=== PATIENT | female | born 1985 | race Two or more races ===

== ENCOUNTER → 2017-07-06 | Outpatient (CLI) | payer OTHER | LOC: CFH 16:05 | PROVIDERS: ATTEND Obstetrics & Gynecology | DX: Z36.9 Encounter for antenatal screening, unspecified (principal); Z3A.19 19 weeks gestation of pregnancy | CPT/HCPCS: 76805 ==

== ENCOUNTER 2017-07-07 10:00 | Emergency (ER) | payer OTHER ==
[~2017-07-07] VITALS: Ht 170.2 cm; Wt 62.0 kg
[2017-07-07 10:58] LABS: BASOPHILS # (AUTO) 0.02 x10^3/uL (0-0.1); BASOPHILS % (AUTO) 0 % (0-1); EOSINOPHILS # (AUTO) 0.05 x10^3/uL (0-0.4); EOSINOPHILS % (AUTO) 1 % (1-7); LYMPHOCYTES % (AUTO) 20 % (22-44); MD NO; MEAN CORPUSCULAR HEMOGLOBIN 28.7 pg (27.0-34.8); MEAN CORPUSCULAR HGB CONC 33.3 g/dL (32.4-35.8); MEAN CORPUSCULAR VOLUME 86.1 fL (80-100); MEAN PLATELET VOLUME 10.3 fL (7.4-10.4); MONOCYTES # (AUTO) 0.41 x10^3/uL (0.2-0.8); MONOCYTES % (AUTO) 5 % (2-9); NEUTROPHILS # (AUTO) 5.54 x10^3/uL (1.8-6.8); NEUTROPHILS % (AUTO) 74 % (42-75); PLATELET COUNT 171 x10^3/uL (130-400); RED BLOOD COUNT 3.74 x10^6/uL (3.82-5.3)
[2017-07-07 11:07] LABS: ALANINE AMINOTRANSFERASE 14 U/L (12-78); ANION GAP 7 mmol/L (5-15); CALCIUM 8.1 mg/dL (8.5-10.1); CHLORIDE 107 mmol/L (98-107); CREATININE 0.74 mg/dL (0.55-1.02)
[2017-07-07 11:09] LABS: ALKALINE PHOSPHATASE 67 U/L (45-117); BILIRUBIN,TOTAL 0.3 mg/dL (0.2-1.0); TOTAL PROTEIN 7.1 g/dL (6.4-8.2)
[2017-07-07] MEDS ORDERED: MAALOX/HYOSCYAMINE/LIDOCAINE 45 ML BTL PO ONE (11:30)
[2017-07-07] MEDS ORDERED: MAALOX/HYOSCYAMINE/LIDOCAINE 45 ML BTL ONE (11:32)
[2017-07-07 11:36] LABS: D-DIMER 0.6 ug/mlFEU (0.00-0.52); INTERNATIONAL NORMALIZED RATIO 0.91 (0.93-1.1); PROTHROMBIN TIME 9.5 Seconds (9.6-11.5)
[2017-07-07 11:39] LABS: TROPONIN I < 0.015 ng/mL (0.000-0.045)
[2017-07-07 12:28] LABS: MICROSCOPIC AUTO
[2017-07-07 12:30] LABS: CULTURE INDICATED? YES
[2017-07-07 13:05] VITALS: BP 115/76
== END 2017-07-07 13:42 | disposition home or self-care (01) ==
LOC: ED 13:26
DX: O26.892 Other specified pregnancy related conditions, second trimester (principal); R07.89 Other chest pain; K21.9 Gastro-esophageal reflux disease without esophagitis; Z3A.20 20 weeks gestation of pregnancy
CPT/HCPCS: 36415; 71045; 80053; 81001; 84484; 85025; 85379; 85610; 85730; 87086; 93005; 93970; 99285